=== PATIENT | male | born 1945 | race Caucasian/White ===

== ENCOUNTER → 2018-08-22 | Outpatient (CLI) | payer OTHER ==
--- NOTE | 2018-08-22 13:59 | RADIOLOGY REPORT (SQ) ---
EXAM DESCRIPTION: CT SOFT TISSUE NECK WITH COMPLETED DATE/TIME: 08/22/2018 1:48 pm REASON FOR STUDY: ACUTE PHARYNGITIS,UNSPECIFIED J02.9 ACUTE PHARYNGITIS, UNSPECIFIED COMPARISON: None. TECHNIQUE: Post IV contrasted scanning from skull base through lung apices with review of bone, soft tissue and lung windows. Reconstructed coronal and sagittal MPR images reviewed. All images stored on PACS. All CT scanners at this facility use dose modulation, iterative reconstruction, and/or weight based d osing when appropriate to reduce radiation dose to as low as reasonably achievable (ALARA). [facility]: Dose Right [facility]: CareDose [facility]: Dose Right [facility]: Teradose 4D [facility]: PowerPlay Mobile CONTRAST TYPE AND DOSE: contrast/concentration: Isovue 350.00 mg/ml; Total Contrast Delivered: 75.0 ml; Total Saline Delivered: 55.0 ml RENAL FUNCTION: Creatinine 0.9 RADIATION DOSE: . LIMITATIONS: The study is limited by dental artifact. FINDINGS: SKULL BASE: Intact. MAJOR SALIVARY GLANDS: No solid or cystic masses. No inflammatory changes. LYMPHADENOPATHY: There are scattered bilateral small cervical lymph nodes. There are 2 soft tissue m asses anterior to the right neurovascular bundle. 1 demonstrates heterogeneous enhancement with enha ncing septations. This measures approximately 2 cm in AP dimensions. It measures 3.0 cm in cranial caudal dimensions. Just below this lesion there is a solid homogeneous soft tissue mass measured 1.4 cm in greatest transverse dimensions. It extends 2.8 cm cranial caudally. MUCOSAL MASSES OR ASYMMETRY: There is asymmetry in the supraglottic larynx. Focal mass is not identi fied but there is slightly asymmetric soft tissue prominence left of midline. The uvula is slightly enlarged as well. LARYNX/CORDS: No abnormal findings. VASCULAR STRUCTURES: The major vessels are patent. LUNG APICES: Clear. BONES: Intact. THYROID: Normal size. No masses. PARANASAL SINUSES: Clear. OTHER: No other significant finding. IMPRESSION: 2 soft tissue masses along the right neurovascular bundle. This possibly represents met astatic lymphadenopathy. FNA is recommended. There are small scattered bilateral cervical lymph nod es. Soft tissue asymmetry involving the left supraglottic clear neck is an uvula. Recommend direct visua lization. TECHNICAL DOCUMENTATION: JOB ID: [id number] Quality ID # [id number]: Final reports with documentation of one or more dose reduction techniques (e.g., Au tomated exposure control, adjustment of the mA and/or kV according to patient size, use of iterative reconstruction technique) 2010 [employer]- All Rights Reserved Reading location - IP/workstation name: [email or web address]
== END ==
LOC: RAD 13:08
PROVIDERS: ATTEND Otolaryngology
DX: M54.2 Cervicalgia (principal)
CPT/HCPCS: 70491; 82565

== ENCOUNTER 2018-09-24 10:05 | Day surgery (SDC) | payer OTHER ==
--- NOTE | 2018-09-23 10:39 | RADIOLOGY REPORT (SQ) ---
EXAM DESCRIPTION: CHEST PA/LATERAL COMPLETED DATE/TIME: 09/23/2018 10:19 am REASON FOR STUDY: PRE-OP COMPARISON: 10/30/2013 EXAM PARAMETERS: NUMBER OF VIEWS: two views TECHNIQUE: Digital Frontal and Lateral radiographic views of the chest acquired. RADIATION DOSE: NA LIMITATIONS: none FINDINGS: LUNGS AND PLEURA: Findings of COPD, stable. Linear subsegmental atelectasis or scarring in the mid-lower lung zones. Stable blunting of the costophrenic angles, may represent small pleural effusions versus pleural reaction, findings more so on the left. No pneumothorax. MEDIASTINUM AND HILAR STRUCTURES: No masses or contour abnormalities. HEART AND VASCULAR STRUCTURES: Heart normal size. No evidence for failure. BONES: No acute findings. HARDWARE: None in the chest. OTHER: No other significant finding. IMPRESSION: 1. Stable examination since the prior study dated 10/30/2013. 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 2. Small bilateral pleural effusions versus pleural thickening, unchanged findings. TECHNICAL DOCUMENTATION: JOB ID: [id number] [employer]- All Rights Reserved Reading location - IP/workstation name: [email or web address]
[2018-09-23 11:10] LABS: HEMATOCRIT 39.5 % (37.9-51.0); HEMOGLOBIN 13.6 g/dL (13.5-17.0); MEAN CORPUSCULAR HEMOGLOBIN 32.8 pg (27.0-33.4); MEAN CORPUSCULAR HGB CONC 34.5 g/dL (32.0-36.0); MEAN CORPUSCULAR VOLUME 95 fl (80-97); PLATELET COUNT 308 10^3/uL (150-450); RED BLOOD COUNT 4.16 10^6/uL (4.35-5.55); WHITE BLOOD COUNT 6.2 10^3/uL (4.0-10.5)
[2018-09-23 11:21] LABS: ALANINE AMINOTRANSFERASE 17 U/L (21-72); ALBUMIN 3.9 g/dL (3.5-5.0); ALKALINE PHOSPHATASE 88 U/L (38-126); ANION GAP 8 (5-19); ASPARTATE AMINO TRANSFERASE 19 U/L (17-59); BILIRUBIN,DIRECT 0.3 mg/dL (0.0-0.4); BILIRUBIN,TOTAL 0.6 mg/dL (0.2-1.3); BLOOD UREA NITROGEN 20 mg/dL (7-20); CALCIUM 9.6 mg/dL (8.4-10.2); CARBON DIOXIDE 26 mmol/L (22-30); CHLORIDE 105 mmol/L (98-107); GLUCOSE 102 mg/dL (75-110); SODIUM 138.6 mmol/L (137-145); TOTAL PROTEIN 7.1 g/dL (6.3-8.2)
--- NOTE | 2018-09-23 12:15 | EKG REPORT ---
SEVERITY:- OTHERWISE NORMAL ECG - SINUS RHYTHM ATRIAL PREMATURE COMPLEX : Confirmed by: Mark Burgess MD 23-Sep-2018 12:14:09
[~2018-09-24 10:05] MED LIST: CEFAZOLIN 2 GM/D5W RTU 2 GM/50 ML RTUPB IV PRN
[2018-09-24] MEDS ORDERED: CEFAZOLIN 2 GM/D5W RTU 2 GM/50 ML RTUPB IV ONE (10:46)
[2018-09-24] MEDS ORDERED: GLYCOPYRROLATE 1 MG/5 ML SYRINGE ONE (10:47)
[2018-09-24] MEDS ORDERED: LIDOCAINE 2% INJ-PF (20 MG/ML) 2 ML AMPUL ONE (10:47)
[2018-09-24] MEDS ORDERED: DEXAMETHASONE SOD PHOSPHATE INJ 4 MG/1 ML VIAL ONE (10:47)
[2018-09-24] MEDS ORDERED: SUCCINYLCHOLINE CHLORIDE INJ 200 MG/10 ML VIAL ONE (10:47)
[2018-09-24] MEDS ORDERED: NEOSTIGMINE METHYLSULFATE 10 MG/10 ML VIAL ONE (10:47)
[2018-09-24 10:58] LABS: INTERNATIONAL RATION (INR) 0.94
[2018-09-24] MEDS ORDERED: MINERAL OIL (STERILE) 10 ML VIAL ONE (12:39)
[2018-09-24] MEDS ORDERED: OXYMETAZOLINE HCL 0.05% NASAL SPRAY 15 ML BOTTLE ONE (12:39)
[2018-09-24] MEDS ORDERED: BUPIVACAINE HCL 0.5%-EPI 1:200000 INJ/PF 30 ML VIAL ONE (12:39)
[2018-09-24] MEDS ORDERED: MIDAZOLAM 2 MG/2 ML INJ ONE (12:51)
[2018-09-24] MEDS ORDERED: FENTANYL CITRATE INJ/PF 100 MCG/2 ML AMPUL ONE (12:51)
[2018-09-24] MEDS ORDERED: EPHEDRINE SULFATE INJ 50 MG/1 ML AMPULE ONE (12:51)
[2018-09-24] MEDS ORDERED: PROPOFOL INJ 200 MG/20 ML VIAL IV ONE (12:51)
[2018-09-24] MEDS ORDERED: BUPIVACAINE HCL 0.5%/EPI 1:200000 INJ 1.8 ML CARTRIDGE ONE (13:01)
[2018-09-24] MEDS ORDERED: LIDOCAINE 2%/EPINEPHRINE INJ 1.7 ML CARTRIDGE ONE (13:01)
[2018-09-24] MEDS ORDERED: MEPERIDINE HCL/PF INJ 25 MG/1 ML DISP.SYRIN IV PRN (13:57)
[2018-09-24] MEDS ORDERED: FENTANYL CITRATE INJ/PF 100 MCG/2 ML AMPUL IV PRN ×3 (13:57)
[2018-09-24] MEDS ORDERED: PROMETHAZINE HCL INJ 25 MG/1 ML VIAL IV PRN ×2 (13:57)
[2018-09-24] MEDS ORDERED: OXYCODONE-ACETAMINOPHEN 5-325 MG TABLET PO PRN ×2 (13:57)
[2018-09-24] MEDS ORDERED: DIPHENHYDRAMINE HCL 50 MG/ML VIAL IV PRN (13:57)
[2018-09-24] MEDS ORDERED: HYDROCOD/ACETAMIN 7.5-325 MG/15 ML ORAL SOLN UDCUP PO PRN (14:42)
[2018-09-24] MEDS ORDERED: ONDANSETRON HCL INJ/PF 4 MG/2 ML SDV IV PRN (14:42)
[2018-09-24 16:04] VITALS: BP 124/69
== END 2018-09-24 16:12 | disposition home or self-care (01) ==
LOC: OROUT 10:05
PROVIDERS: ATTEND Otolaryngology
DX: C13.9 Malignant neoplasm of hypopharynx, unspecified (principal); J39.2 Other diseases of pharynx; J38.7 Other diseases of larynx; M54.2 Cervicalgia; R59.0 Localized enlarged lymph nodes; I10 Essential (primary) hypertension; Z79.899 Other long term (current) drug therapy; J02.9 Acute pharyngitis, unspecified; J34.2 Deviated nasal septum; F17.210 Nicotine dependence, cigarettes, uncomplicated; D69.9 Hemorrhagic condition, unspecified
CPT/HCPCS: 93005; 36415 ×2; 85027; 85610; 85730; 80053; 88305 ×2; 71046; 93010; 31535; J2250; J3490 ×5; J1100; J3010; J0330; J2704; J0690; 170; J2710

== ENCOUNTER → 2018-10-02 | Day surgery (SDC) | payer OTHER ==
[~2018-10-02] MED LIST changes: -CEFAZOLIN 2 GM/D5W RTU 2 GM/50 ML RTUPB IV PRN; +LIDOCAINE 1% INJ-PF (10 MG/ML) 30 ML SDV ONE
--- NOTE | 2018-10-02 15:29 | RADIOLOGY REPORT (SQ) ---
EXAM DESCRIPTION: U/S BIOPSY SUPERFIC LYMPH NODE COMPLETED DATE/TIME: 10/02/2018 2:03 pm REASON FOR STUDY: LOCALIZED ENLARGED LYMPH NODES R59.0 LOCALIZED ENLARGED LYMPH NODES COMPARISON: CT soft tissue neck 08/22/2018 TECHNIQUE: Ultrasound-guided fine-needle aspirate of right cervical lymph nodes was performed. Path ology pending on the material aspirated today LIMITATIONS: None. FINDINGS: Risks benefits and alternatives of fine-needle aspirate cervical lymph node was discussed with the patient agreed to the procedure. Ultrasound scanning demonstrates enlarged right submandibular triangle lymph nodes, 2.4 x 1.3 cm and 2.8 x 1.5 cm in size. Scanning for fine-needle aspirate planning was performed including color Doppl er. Skin site marked. Time-out performed. After skin prep with ChloraPrep and 0.5 mL 1% lidocaine for soft tissue anesthesia, 3 passes with an 18 gauge needle were made into the larger of the 2 neck nodes with aspirates obtained. Specimens wer e given to Dr. Lane from pathology. Cytology analysis pending at this time. There were no immediate postprocedure complications. IMPRESSION: Ultrasound-guided fine-needle aspirate right cervical adenopathy. Pathology is pending. TECHNICAL DOCUMENTATION: JOB ID: [id number] [employer]- All Rights Reserved Reading location - IP/workstation name: [email or web address]
--- NOTE | 2018-10-04 11:29 | OPERATIVE REPORT E ---
Operative Report NAME: AHSAN LOWE : 1945 AGE: 73Y DATE OF SURGERY: 09/24/2018 ROOM: PREOPERATIVE DIAGNOSES: 1. Hypopharyngeal mass. 2. Epiglottic mass. 3. Cervical lymphadenopathy. 4. Chronic sore throat pain. 5. Chronic tobacco abuse history. POSTOPERATIVE DIAGNOSIS: 1. Hypopharyngeal mass. 2. Epiglottic mass. 3. Cervical lymphadenopathy. 4. Chronic sore throat pain. 5. Chronic tobacco abuse history. OPERATION PERFORMED: Upper airway rigid endoscopy with directed biopsies. SURGEON: VESNA WRIGHT D.O. ANESTHETIC: General endotracheal tube, anesthesia staff. ESTIMATED BLOOD LOSS: Less than 5 mL. FLUIDS: N/A COMPLICATIONS: None. DRAINS: None. SPONGE COUNT: Verified. MATERIALS FORWARDED SPECIMEN: 1. Numerous hypopharyngeal biopsy specimens. 2. Numerous epiglottis biopsy specimens. INDICATIONS: This is a 73-year-old white male who was referred for ENT evaluation from their oncologist. The patient was with history of chronic tobacco abuse over the years. He is with history of sore throat complaints for greater than 1 year. On clinic flexible endoscopy there was concern for an epiglottis mass and a hypopharyngeal mass. The patient was also noted to have cervical lymphadenopathy. The patient underwent CT neck imaging with contrast with enlarged cervical lymph nodes noted with recommendation and plan for fine needle aspiration biopsy. The patient was set up for rigid endoscopy with directed biopsies in the main operating room. The patient voiced an understanding of the need for additional workup for diagnosis and rule in or rule out of cancer with additional care as indicated. The procedures were all discussed in detail with the patient, which he voiced an understanding of, agreed to proceed with biopsy. Consent was obtained. FINDINGS: 1. Hypopharyngeal mass appeared to be exophytic in the left hypopharyngeal distribution. 2. Exophytic-appearing epiglottic mass at the superior margin. 3. Cervical lymphadenopathy. PROCEDURE: The patient was taken to the main operating room and placed on the operating room table in the supine position. Appropriate monitors were placed. Next, with use of mask and IV anesthetic, IV access general anesthesia was established. The patient was transorally intubated without difficulty. At this point the patient was positioned and prepped for upper airway rigid endoscopy with directed biopsies. The patient had a mouthguard placed over the upper teeth/gums. Next, a rigid laryngoscope was passed with the areas of concern identified and numerous biopsies were taken from the locations of concern and passed off for permanent pathology evaluation. There was mild bleeding noted. Afrin-soaked neuro patties were placed over the biopsy sites. At this point the rigid laryngoscope and mouthguard were removed. There was no damage to the lips, teeth, and gums or inside of the mouth. At this point the patient was returned to the anesthesia staff and allowed to emerge from general anesthesia. The neuro patties and endotracheal tubes were all removed without difficulty. The patient was then transported to the postanesthesia recovery unit in stable condition. There were no complications. DICTATING PHYSICIAN: VESNA WRIGHT D.O. [id number] PHY#: [id number] ID: [id number] JOB#: [id number] ACCT: [id number] cc:VESNA WRIGHT D.O. >
== END ==
LOC: RAD 11:38
PROVIDERS: ATTEND Otolaryngology
DX: R59.0 Localized enlarged lymph nodes (principal); I10 Essential (primary) hypertension; Z79.899 Other long term (current) drug therapy; J39.2 Other diseases of pharynx; J38.7 Other diseases of larynx; M54.2 Cervicalgia; J02.9 Acute pharyngitis, unspecified; J34.2 Deviated nasal septum; F17.210 Nicotine dependence, cigarettes, uncomplicated
CPT/HCPCS: 88342 ×2; 88173 ×2; 88305 ×2; 38505; J3490

== ENCOUNTER → 2018-11-02 | Outpatient (CLI) | payer OTHER ==
--- NOTE | 2018-11-03 11:39 | RADIOLOGY REPORT (SQ) ---
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 RADIONUCLIDE AND DOSE: 9.43 mCi F18 FDG The route of agent administration: Intravenous FASTING BLOOD SUGAR: 87 mg/dl CONTRAST TYPE AND DOSE: No CT contrast given. TECHNIQUE: Blood glucose level was verified. Above dose of FDG was injected intravenously. 2-D seg mented attenuation correction images were obtained from the base of the skull to the midthighs. Nonc ontrast CT images were obtained for attenuation correction and fusion with emission images. CT image s were performed without oral or intravenous contrast and are not sensitive for parenchymal lesions. A series of overlapping emission PET images were obtained. Images reviewed and manipulated at [facility] work station by the radiologist. Images stored on PACS. LIMITATIONS: None. FINDINGS: HEAD AND NECK: Hypermetabolic rind of tissue in the supraglottic larynx measuring 6.1 SUV. Borderline hypermetabolic 1 cm right anterior triangle node measuring 1.9 SUV. CHEST: No areas of abnormal metabolic activity in the chest. ABDOMEN AND PELVIS: No areas of abnormal metabolic activity in the abdomen or pelvis. Expected physi ologic activity is present in the genitourinary system and bowel. PROXIMAL LOWER EXTREMITIES: No areas of abnormal metabolic activity in the soft tissues of the lower extremities. BONES: No abnormal metabolic activity in the visualized skeleton. ADDITIONAL CT FINDINGS: Subsegmental dependent airspace disease in the lung bases, likely atelectasis . OTHER: Blood pool 1.6 SUV. Liver background 1.8 SUV IMPRESSION: Known hypopharyngeal hypermetabolic lesion. Hypermetabolic right cervical node. No dis tant metastasis. TECHNICAL DOCUMENTATION: JOB ID: [id number] [employer]- All Rights Reserved Reading location - IP/workstation name: [email or web address]
== END ==
LOC: RAD 16:36
PROVIDERS: ATTEND Internal Medicine Medical Oncology
DX: C76.0 Malignant neoplasm of head, face and neck (principal)
CPT/HCPCS: 78815; A9552

== ENCOUNTER 2019-03-09 11:47 | Emergency (ER) | payer MEDICARE, OTHER ==
[2019-03-09] MEDS ORDERED: NORMAL SALINE 1000 ML 1,000 ML IV ONE (12:15)
--- NOTE | 2019-03-09 12:16 | ER Document Report ---
ED Medical Screen (RME) - General Chief Complaint: Weakness Stated Complaint: DEHYDRATION Time Seen by Provider: 03/09/19 12:11 Primary Care Provider: SIXTO SOL MD [Primary Care Provider] - Follow up as needed Mode of Arrival: Wheelchair Notes: Patient presents with report of hypotension. Patient was upstairs to receive radiation treatment. 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 Patient does complain of weakness, dizziness. I have greeted and performed a rapid initial assessment of this patient. A comprehensive ED assessment and evaluation of the patient, analysis of test results and completion of the medical decision making process will be conducted by additional ED providers. TRAVEL OUTSIDE OF THE [place] IN LAST 30 DAYS: No - Related Data Allergies/Adverse Reactions: No Known Allergies Allergy (Verified 03/09/19 12:11) Past Medical History - Past Medical History Cardiac Medical History: Reports: Hx Hypertension Denies: Hx Coronary Artery Disease, Hx Heart Attack Pulmonary Medical History: Reports: Hx Asthma Denies: Hx Bronchitis, Hx COPD, Hx Pneumonia, Hx Tuberculosis Neurological Medical History: Denies: Hx Cerebrovascular Accident, Hx Seizures Musculoskeltal Medical History: Denies Hx Arthritis Psychiatric Medical History: Denies: Hx Depression Past Surgical History: Reports: Hx Appendectomy - Immunizations Hx Diphtheria, Pertussis, Tetanus Vaccination: Yes - NOT UP TO DATE Physical Exam - General General appearance: Alert Notes: Cachectic, appears chronically ill, heart rate and rhythm regular Doctor's Discharge - Discharge Referrals: ISXTO SOL MD [Primary Care Provider] - Follow up as needed
--- NOTE | 2019-03-09 13:08 | EKG REPORT ---
SEVERITY:- OTHERWISE NORMAL ECG - SINUS RHYTHM BORDERLINE RIGHT AXIS DEVIATION NONSPECIFIC ST-T CHANGES- INFERIOR LEADS : Confirmed by: Mark Burgess MD 09-Mar-2019 13:07:42
--- NOTE | 2019-03-09 14:21 | RADIOLOGY REPORT (SQ) ---
EXAM DESCRIPTION: CHEST 2 VIEWS COMPLETED DATE/TIME: 03/09/2019 2:00 pm REASON FOR STUDY: weakness, hypotension COMPARISON: 09/23/2018 EXAM PARAMETERS: NUMBER OF VIEWS: two views TECHNIQUE: Digital Frontal and Lateral radiographic views of the chest acquired. RADIATION DOSE: NA LIMITATIONS: none FINDINGS: LUNGS AND PLEURA: Findings of COPD and subsegmental linear areas of scarring or atelectas is in the mid-lower lung zones. Stable mild pleuroparenchymal changes in the mid lower left hemithor ax. Slight stable blunting of the right costophrenic angle, unchanged finding, may be on the basis o f small effusion versus pleural reaction. No pneumothorax. MEDIASTINUM AND HILAR STRUCTURES: No masses or contour abnormalities. HEART AND VASCULAR STRUCTURES: Heart normal size. No evidence for failure. BONES: No acute findings. HARDWARE: None in the chest. OTHER: No other significant finding. IMPRESSION: 1. No significant interval changes since the prior examination dated 09/23/2017. Findin gs of COPD and mild chronic atelectasis or scar in the mid-lower lung zones. 2. Small bilateral pleural effusions versus pleural thickening, more so on the left, unchanged findi ngs. TECHNICAL DOCUMENTATION: JOB ID: [id number] [employer]- All Rights Reserved Reading location - IP/workstation name: [email or web address]
[2019-03-09 15:33] LABS: HEMATOCRIT 30.5 % (37.9-51.0); HEMOGLOBIN 10.6 g/dL (13.5-17.0); MEAN CORPUSCULAR HEMOGLOBIN 33.2 pg (27.0-33.4); MEAN CORPUSCULAR HGB CONC 34.7 g/dL (32.0-36.0); MEAN CORPUSCULAR VOLUME 96 fl (80-97); PLATELET COUNT 198 10^3/uL (150-450); RED BLOOD COUNT 3.19 10^6/uL (4.35-5.55); RED CELL DISTRIBUTION WIDTH 14.7 % (11.5-14.0)
[2019-03-09 15:54] LABS: ABSOLUTE LYMPHOCYTES# (MANUAL) 0.2 10^3/uL (0.5-4.7); ABSOLUTE MONOCYTES # (MANUAL) 0.4 10^3/uL (0.1-1.4); BAND NEUTROPHILS % (MANUAL) 2 % (3-5); BASOPHILS % (MANUAL) 0 % (0-2); EOSINOPHILS % (MANUAL) 4 % (0-6); LYMPHOCYTES % (MANUAL) 10 % (13-45); MONOCYTES % (MANUAL) 18 % (3-13); SEGMENTED NEUTROPHILS % (MAN) 66 % (42-78); TOTAL CELLS COUNTED 50
[2019-03-09 15:55] LABS: ANISOCYTOSIS SLIGHT; OVALOCYTES SLIGHT; PLATELET COMMENT ADEQUATE; POIKILOCYTOSIS SLIGHT
[2019-03-09 15:56] LABS: ALBUMIN 4.1 g/dL (3.5-5.0); ALKALINE PHOSPHATASE 83 U/L (38-126); ANION GAP 9 (5-19); ASPARTATE AMINO TRANSFERASE 24 U/L (17-59); BILIRUBIN,DIRECT 0.2 mg/dL (0.0-0.4); BILIRUBIN,TOTAL 0.5 mg/dL (0.2-1.3); BLOOD UREA NITROGEN 17 mg/dL (7-20); CALCIUM 9.4 mg/dL (8.4-10.2); CARBON DIOXIDE 29 mmol/L (22-30); CHLORIDE 100 mmol/L (98-107); GLUCOSE 121 mg/dL (75-110); POTASSIUM 4.3 mmol/L (3.6-5.0); TOTAL PROTEIN 7.4 g/dL (6.3-8.2)
--- NOTE | 2019-03-09 22:36 | ER Document Report ---
ED General - General Chief Complaint: Low Blood Pressure Stated Complaint: DEHYDRATION Time Seen by Provider: 03/09/19 12:11 Primary Care Provider: CHARLEY GONZALEZ MD [ACTIVE STAFF] - Follow up in 3-5 days Mode of Arrival: Wheelchair Notes: Patient is a 73-year-old male that comes emergency department from referral upstairs after he was found to have borderline hypotension in the 90s upon discharge. He was receiving radiation for head/neck cancer, he is also on chemotherapy once a week. He states that he feels fine and he has felt fine all day. He states he is able to eat and drink, he is not vomiting, he is not having any obvious side effects from the chemotherapy. He denies fever/chills, chest pain, shortness of breath, headache. TRAVEL OUTSIDE OF THE [place] IN LAST 30 DAYS: No - Related Data Allergies/Adverse Reactions: No Known Allergies Allergy (Verified 03/09/19 12:11) Past Medical History - General Information source: Patient - Social History Smoking Status: Current Every Day Smoker Chew tobacco use (# tins/day): No Frequency of alcohol use: Occasional Drug Abuse: None Lives with: Alone Family History: Reviewed & Not Pertinent Patient has suicidal ideation: No Patient has homicidal ideation: No - Past Medical History Cardiac Medical History: Reports: Hx Hypertension Denies: Hx Coronary Artery Disease, Hx Heart Attack Pulmonary Medical History: Reports: Hx Asthma Denies: Hx Bronchitis, Hx COPD, Hx Pneumonia, Hx Tuberculosis Neurological Medical History: Denies: Hx Cerebrovascular Accident, Hx Seizures Musculoskeletal Medical History: Denies Hx Arthritis Psychiatric Medical History: Denies: Hx Depression Past Surgical History: Reports: Hx Appendectomy - Immunizations Hx Diphtheria, Pertussis, Tetanus Vaccination: Yes - NOT UP TO DATE Hx Pneumococcal Vaccination: 06/03/17 Review of Systems - Review of Systems Constitutional: See HPI EENT: No symptoms reported Cardiovascular: See HPI Respiratory: No symptoms reported Gastrointestinal: No symptoms reported Genitourinary: No symptoms reported Male Genitourinary: No symptoms reported Musculoskeletal: No symptoms reported Skin: No symptoms reported Hematologic/Lymphatic: No symptoms reported Neurological/Psychological: No symptoms reported Physical Exam - Vital signs Vitals: Temp Pulse Resp BP Pulse Ox 96 F L 81 16 95/58 L 98 03/09/19 13:01 03/09/19 13:01 03/09/19 13:01 03/09/19 13:01 03/09/19 13:01 - Notes Notes: GENERAL: Alert, interacts well. No acute distress. Slightly chronically ill- appearing and thin HEAD: Normocephalic, atraumatic. EYES: Pupils equal, round, and reactive to light. Extraocular movements intact. ENT: Oral mucosa moist, tongue midline. Oropharynx unremarkable. Airway patent. Nares patent, no nasal septal hematoma, TM's intact. NECK: Full range of motion. Supple. Trachea midline. LUNGS: Clear to auscultation bilaterally, no wheezes, rales, or rhonchi. No respiratory distress. HEART: Regular rate and rhythm. No murmur ABDOMEN: Soft, non-tender. Non-distended. Bowel sounds present in all 4 quadrants. GENITOURINARY: Deferred EXTREMITIES: Moves all 4 extremities spontaneously. No edema, normal radial and dorsalis pedis pulses bilaterally. No cyanosis. BACK: no cervical, thoracic, lumbar midline tenderness. No saddle anesthesia, no rmal distal neurovascular exam. Moves all extremities in full range of motion. NEUROLOGICAL: Alert and oriented x3. Normal speech. Cranial nerves II through XII grossly intact. PSYCH: Normal affect, normal mood. SKIN: Warm, dry, normal turgor. No rashes or lesions noted. Course - Re-evaluation Re-evalutation: Charge nurse came to me and explained that unfortunately there was an error and patient's chart have been lost, patient was not accounted for for a very extended period of time, he has now been in the emergency department for over 10 hours. I apologized to the patient and explained that there was an error, patient was graciously amiable about it, but he does request a ride home. He is requesting be discharged now. He has completed IV fluids, his blood pressure is normal, he has no dizziness on standing, he has no fever, his temperature was rechecked and normal. Chemistry shows no concerning findings, CBC shows leukopenia and borderline neutropenia but patient has no fever or complaints. Remaining work-up no nspecific. I asked patient for urinalysis but he states that in order to get one now he will need to get his Flomax. He requests that he not be tested for this because he has no current symptoms. I did call and update Dr. Gonzalez, I also explained the unfortunate delay. No additional recommendations at this time. Patient with no complaints again, he will be provided with transport. Discussed return precautions. Patient states understanding and agreement. - Vital Signs Vital signs: Temp Pulse Resp BP Pulse Ox 98.1 F 65 15 104/55 L 100 03/09/19 22:59 03/09/19 22:59 03/09/19 22:59 03/09/19 22:59 03/09/19 16:01 - Laboratory Result Diagrams: 03/09/19 15:11 03/09/19 14:29 Laboratory results interpreted by me: 03/09/19 03/09/19 14:29 15:11 WBC 2.0 L RBC 3.19 L Hgb 10.6 L Hct 30.5 L RDW 14.7 H Band Neutrophils % 2 L Lymphocytes % (Manual) 10 L Monocytes % (Manual) 18 H Abs Neuts (Manual) 1.4 L Abs Lymphs (Manual) 0.2 L Glucose 121 H Discharge - Discharge Clinical Impression: Low blood pressure Qualifiers: Hypotension type: unspecified hypotension type Qualified Code(s): I95.9 - Hypotension, unspecified Condition: Stable Disposition: HOME, SELF-CARE Additional Instructions: You have been given IV fluids for your low blood pressure. You remain specific concerning findings. Please follow-up with your oncologist Dr. Gonzalez for additional management. Return for any concerning symptoms including fever, vomiting, passing out, or any other concerning or worsening symptoms. Referrals: CHARLEY GONZALEZ MD [ACTIVE STAFF] - Follow up in 3-5 days
[2019-03-09 23:02] VITALS: BP 104/55
[2019-03-10 10:19] LABS: PATH REVIEW PATHOLOGIST REVIEWED
== END 2019-03-09 23:14 | disposition home or self-care (01) ==
LOC: ER 11:47
DX: I95.9 Hypotension, unspecified (principal); E86.0 Dehydration; C76.0 Malignant neoplasm of head, face and neck; C79.89 Secondary malignant neoplasm of other specified sites; Z79.899 Other long term (current) drug therapy; F17.200 Nicotine dependence, unspecified, uncomplicated; I10 Essential (primary) hypertension; J45.909 Unspecified asthma, uncomplicated
CPT/HCPCS: 93005; 36415; 83735; 85025; 80053; 84484; 71046; 93010; J7030; 96360; 99285

== ENCOUNTER 2019-03-18 11:00 | Outpatient (CLI) | payer OTHER, MEDICARE ==
[~2019-03-18 11:00] MED LIST changes: -LIDOCAINE 1% INJ-PF (10 MG/ML) 30 ML SDV ONE; +NORMAL SALINE 1000 ML 1,000 ML IV PRN
[2019-03-18 11:15] VITALS: BP 100/65
== END 2019-03-18 12:30 | disposition home or self-care (01) ==
LOC: II 11:00 → 5TH 11:06 → II 12:30
PROVIDERS: ATTEND Pediatrics
PROC: 3E0337Z Introduction of Electrolytic and Water Balance Substance into Peripheral Vein, Percutaneous Approach (ICD-10-PCS; principal; 2019-03-18)
DX: C32.1 Malignant neoplasm of supraglottis (principal)
CPT/HCPCS: 96360

== ENCOUNTER 2019-03-20 12:26 | Outpatient (CLI) | payer OTHER, MEDICARE ==
[2019-03-20 12:59] LABS: ABSOLUTE EOSINOPHILS # (AUTO) 0.1 10^3/uL (0.0-0.6); ABSOLUTE LYMPHOCYTES (AUTO) 0.2 10^3/uL (0.5-4.7); ABSOLUTE MONOCYTES (AUTO) 0.5 10^3/uL (0.1-1.4); ABSOLUTE NEUT (AUTO) 2.4 10^3/uL (1.7-8.2); BASOPHILS % (AUTO) 0.4 % (0-2); HEMATOCRIT 34.6 % (37.9-51.0); HEMOGLOBIN 11.9 g/dL (13.5-17.0); MEAN CORPUSCULAR HEMOGLOBIN 32.7 pg (27.0-33.4); MEAN CORPUSCULAR HGB CONC 34.2 g/dL (32.0-36.0); MEAN CORPUSCULAR VOLUME 96 fl (80-97); MONOCYTES % (AUTO) 14.9 % (3-13); PLATELET COUNT 330 10^3/uL (150-450); RED BLOOD COUNT 3.62 10^6/uL (4.35-5.55); RED CELL DISTRIBUTION WIDTH 17.5 % (11.5-14.0); SEGMENTED NEUTROPHILS % (AUTO) 75.7 % (42-78); TOTAL CELLS COUNTED % (AUTO) 100 %; WHITE BLOOD COUNT 3.2 10^3/uL (4.0-10.5)
[2019-03-20 13:14] VITALS: BP 106/65
== END 2019-03-20 14:49 | disposition home or self-care (01) ==
LOC: II 12:26 → 5TH 13:17 → II 14:49
PROVIDERS: ATTEND Pediatrics
PROC: 3E0337Z Introduction of Electrolytic and Water Balance Substance into Peripheral Vein, Percutaneous Approach (ICD-10-PCS; principal; 2019-03-20)
DX: C32.1 Malignant neoplasm of supraglottis (principal)
CPT/HCPCS: 36415; 85025; 96360; 96361

== ENCOUNTER → 2019-04-24 | Outpatient (CLI) | payer OTHER ==
--- NOTE | 2019-04-24 16:46 | RADIOLOGY REPORT (SQ) ---
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 Reconstructed coronal and sagittal MPR images reviewed. All images stored on PAC S. All CT scanners at this facility use dose modulation, iterative reconstruction, and/or weight based d osing when appropriate to reduce radiation dose to as low as reasonably achievable (ALARA). [facility]: Dose Right [facility]: CareDose [facility]: Dose Right [facility]: Teradose 4D [facility]: [email or web address] RADIATION DOSE: 15.0 mGy. LIMITATIONS: None. FINDINGS: There is abnormal thickening of the epiglottis, less prominent than on 11/02/2018 PET-CT and 08/22/2018 CT soft tissue neck. At its thickest, the epiglottis today measures 8 mm in thickness in the midline at its base (was 14 mm in greatest thickness on CT soft tissue neck 08/22/2018). Today's study demonstrates mild thickening of the left aryepiglottic fold, less prominent than on pre vious studies. Remainder of the supraglottic laryngeal structures are otherwise unremarkable. There is dependently layering debris in the hypopharynx on sagittal images 58-66. There is debris in the esophagus, regurgitation/reflux is suspected. There is debris in the trachea is above the toña a, worrisome for aspirated material. This is best shown on axial image 113. The right-sided enlarged lymph nodes seen on 08/22/2018 CT neck are present, not as well visualized du e to lack of IV contrast. In the right carotid space, a 12 mm short axis lymph node is present on ax ial image 52 (was 14 mm short axis on 08/22/2018). More superiorly along the right mandibular angle, a 10 mm short axis lymph node is present on axial image 42 (was 16 mm short axis on 08/22/2018). No compromise of the airway by soft tissue structures. Trachea patent. SKULL BASE: Inferior brain parenchyma unremarkable MAJOR SALIVARY GLANDS: No solid or cystic masses. No inflammatory changes. LYMPHADENOPATHY: As above MUCOSAL MASSES OR ASYMMETRY: As above LARYNX/CORDS: As above LUNG APICES: No focal infiltrates. Debris in the trachea worrisome for aspiration BONES: Degenerative disc changes with mild central stenosis at C4-5, C5-6, and C6-7 THYROID: Normal size. No masses. PARANASAL SINUSES: Mucus or serous retention cyst, floor left maxillary sinus OTHER: No other significant finding. IMPRESSION: Treatment response, decrease in size of the supraglottic laryngeal mass and right-sided cervical lymph nodes There is imaging evidence of gastroesophageal reflux and aspiration, with debris in the esophagus, hy popharynx, and trachea. TECHNICAL DOCUMENTATION: JOB ID: [id number] Quality ID # [id number]: Final reports with documentation of one or more dose reduction techniques (e.g., Au tomated exposure control, adjustment of the mA and/or kV according to patient size, use of iterative reconstruction technique) 2010 [employer]- All Rights Reserved Reading location - IP/workstation name: [email or web address]
== END ==
LOC: RAD 12:50
PROVIDERS: ATTEND Radiology Radiation Oncology
DX: D00.08 Carcinoma in situ of pharynx (principal)
CPT/HCPCS: 70490

== ENCOUNTER → 2019-12-22 | Outpatient (CLI) | payer OTHER ==
--- NOTE | 2019-12-23 12:00 | RADIOLOGY REPORT (SQ) ---
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 TECHNIQUE: Blood glucose level was verified. Above dose of FDG was injected intravenously. 2-D seg mented attenuation correction images were obtained from the base of the skull to the midthighs. Nonc ontrast CT images were obtained for attenuation correction and fusion with emission images. CT image s were performed without oral or intravenous contrast and are not sensitive for parenchymal lesions. A series of overlapping emission PET images were obtained. Images reviewed and manipulated at [facility] work station by the radiologist. Images stored on PACS. LIMITATIONS: None. FINDINGS: HEAD AND NECK: Mild residual uptake at the site of the known primary. SUV is calculated 3 .2. There is subtle asymmetric soft tissue attenuation left of midline at this site but the activity is axillae just right of midline. Mild residual activity in the right supraclavicular region SUV is 3.0. On CT images soft tissue asymmetry remains consistent with residual adenopathy. CHEST: No areas of abnormal metabolic activity in the chest. ABDOMEN AND PELVIS: No areas of abnormal metabolic activity in the abdomen or pelvis. Expected physi ologic activity is present in the genitourinary system and bowel. PROXIMAL LOWER EXTREMITIES: No areas of abnormal metabolic activity in the soft tissues of the lower extremities. BONES: No abnormal metabolic activity in the visualized skeleton. ADDITIONAL CT FINDINGS: No additional significant findings on the noncontrast CT images. OTHER: No other significant findings. IMPRESSION: 1. Findings are consistent with positive response to therapy. Activity in the supraglo ttic larynx has decreased and now measures 3.0. 2. Activity in the right supraclavicular region has slightly increased with an SUV of 3.0. There is subtle asymmetry on CT images at this site this is best demonstrated on series 3 image 55. TECHNICAL DOCUMENTATION: JOB ID: [id number] 2010 [employer]- All Rights Reserved Reading location - IP/workstation name: [email or web address]
== END ==
LOC: RAD 10:00
PROVIDERS: ATTEND Internal Medicine
DX: C32.1 Malignant neoplasm of supraglottis (principal)
CPT/HCPCS: 78815; A9552